=== PATIENT | male | born 1990 | race Caucasian/White ===

== ENCOUNTER 2018-03-31 10:41 | Emergency (ER) | payer OTHER ==
[2018-03-31 11:03] VITALS: BP 120/76
--- NOTE | 2018-03-31 11:43 | UC ---
Dental HPI - HPI Summary HPI Summary: 27-year-old male presents with one-week history of right upper dental pain. He states that he fractured his right upper molar a few weeks ago. Describes pain as a constant throbbing. He has tried ibuprofen 800 mg with little relief. Denies fever, chills, trismus, dysphagia, facial swelling, or dental discharge. He does have an appointment with dentist in one week. - History of Current Complaint Chief Complaint: UCDentalProblem Stated Complaint: TOOTH ACHE Time Seen by Provider: 03/31/18 11:15 Hx Obtained From: Patient Onset/Duration: Gradual Onset, Lasting Weeks - 1 Severity: Severe Pain Intensity: 10 Aggravating Factor(s): Chewing Alleviating Factor(s): Nothing Dental: 1 - Severe dental decay with fracture. Mild gingival erythema without induration, fluctuance, or discharge. - Allergies/Home Medications Allergies/Adverse Reactions: Allergies Allergy/AdvReac Type Severity Reaction Status Date / Time No Known Allergies Allergy Verified 03/31/18 11:03 PMH/Surg Hx/FS Hx/Imm Hx Previously Healthy: Yes - Denies significant past medical history - Surgical History Surgical History: None - Family History Family History: Noncontributory - Social History Occupation: Unemployed Lives: With Family Alcohol Use: Rare Substance Use Type: None Smoking Status (MU): Never Smoked Tobacco Review of Systems Constitutional: Negative Skin: Negative ENT: Dental Pain Respiratory: Negative Cardiovascular: Negative Is Patient Immunocompromised?: No All Other Systems Reviewed And Are Negative: Yes Physical Exam Triage Information Reviewed: Yes Appearance: Well-Appearing, No Pain Distress, Well-Nourished Vital Signs: Initial Vital Signs Temp 98 F 03/31/18 11:01 Pulse 58 03/31/18 11:01 Resp 16 03/31/18 11:01 BP 120/76 03/31/18 11:01 Pulse Ox 100 03/31/18 11:01 Vital Signs Reviewed: Yes Eyes: Positive: Conjunctiva Clear. Negative: Discharge ENT: Positive: Pharynx normal, Dental tenderness - Right third upper molar. See diagram., Uvula midline. Negative: Nasal congestion, Nasal drainage, Tonsillar swelling, Tonsillar exudate, Trismus, Muffled voice, Hoarse voice Dental: Positive: Gross Decay/Caries @ - See above, Dental Fracture @ - See above Neck: Positive: Supple, Nontender, No Lymphadenopathy Respiratory: Positive: Lungs clear, Normal breath sounds, No respiratory distress Cardiovascular: Positive: RRR, No Murmur Neurological: Positive: Alert Skin Exam: Normal Dental Complaint Course/Dx - Course Course Of Treatment: 27-year-old male with one-week history of right upper dental pain. Has significant decay of the right third molar which she states fractured a few weeks ago. There is some dental tenderness and mild gingival erythema without induration, fluctuance, or drainage. Will prescribe Augmentin twice daily for 10 days and provided him a prescription for naproxen as needed for pain. He has appointment with dentist in one week scheduled. - Differential Dx/Diagnosis Differential Diagnosis/Dx: Dental Abscess, Dental Caries, Fractured Tooth, Gingivitis, Peridontic Disease Provider Diagnoses: Dental pain Discharge - Sign-Out/Discharge Documenting (check all that apply): Patient Departure All imaging exams completed and their final reports reviewed: No Studies - Discharge Plan Condition: Stable Disposition: HOME Prescriptions: Amoxicillin/Clavulanate TAB* [Augmentin TAB 875*] 875 mg PO BID #20 tab Naproxen [Naprosyn 500 mg tab] 500 mg PO BID PRN #30 tablet PRN Reason: Pain (Dental) Patient Education Materials: Toothache (ED) Referrals: No Primary Care Phys,NOPCP [Primary Care Provider] - Additional Instructions: Start Augmentin 1 tablet twice a day for 10 days. Be sure to complete the entire course of antibiotics even if you are feeling better. May use naproxen 1 tab every 12 hours as needed for pain. Be sure to keep her dental appointment as scheduled next week. Seek immediate medical attention if you develop a fever greater than 100.5 F, have swelling of the face, inability to open your mouth, are unable to swallow, or have any worsening of symptoms. - Billing Disposition and Condition Condition: STABLE Disposition: Home
== END 2018-03-31 11:52 | disposition home or self-care (01) ==
LOC: UCEAST 10:41
DX: K08.89 Other specified disorders of teeth and supporting structures (principal); K03.81 Cracked tooth; K02.9 Dental caries, unspecified
CPT/HCPCS: 99202; G0463